=== PATIENT | male | born 1980 | race Caucasian/White ===

== ENCOUNTER 2021-08-14 06:57 | Day surgery (SDC) | payer BC ==
[~2021-08-14 06:57] MED LIST: Lactated Ringers 1,000 ML IV SCH; Lidocaine 1%/Sod Bicarbonate in NS 8.4% 1 ML Syringe IDERM PRN; Sodium Chloride 0.9% 10 ML Syringe FLUSH PRN
--- NOTE | 2021-08-14 07:36 | PCM.PREANE ---
Preanesthetic Assessment - Procedure Proposed Procedure: Colonoscopy - Anesthesia/Transfusion/Family Hx Anesthesia History: No Prior Anesthesia Family History of Anesthesia Reaction: No Transfusion History: No Prior Transfusion(s) - Review of Systems General: No Symptoms Pulmonary: No Symptoms Cardiovascular: No Symptoms, Other (Hx of Asthma, asymptomatic for the most time) Gastrointestinal: No Symptoms Neurological: No Symptoms Other: Reports: None - Physical Assessment NPO Status Date: 08/13/21 NPO Status Time: 21:30 Height: 1.83 m Weight: 151.5 kg ASA Class: 2 Mental Status: Alert & Oriented x3 Airway Class: Mallampati = 2 Dentition: Reports: Normal Dentition Thyro-Mental Finger Breadths: 3 Mouth Opening Finger Breadths: 3 ROM/Head Extension: Full Lungs: Clear to Auscultation, Normal Respiratory Effort Cardiovascular: Regular Rate, Regular Rhythm - Allergies Allergies/Adverse Reactions: Allergies Allergy/AdvReac Type Severity Reaction Status Date / Time No Known Allergies Allergy Verified 08/09/21 09:01 - Acknowledgements Anesthesia Type Planned: MAC Pt an Appropriate Candidate for the Planned Anesthesia: Yes Alternatives and Risks of Anesthesia Discussed w Pt/Guardian: Yes Pt/Guardian Understands and Agrees with Anesthesia Plan: Yes PreAnesthesia Questionnaire HEENT History: Reports: Allergic Rhinitis Cardiovascular History: Reports: None Respiratory History: Reports: Asthma, Sleep Apnea (probably undiagnosed) Gastrointestinal History: Reports: None Genitourinary History: Reports: None [employer] History: Reports: None Musculoskeletal History: Reports: Arthritis Neurological History: Reports: Other (See Below) Other Neuro History: PRABHJOT gene Psychiatric History: Reports: None Endocrine/Metabolic History: Reports: Obesity/BMI 30+ (Morbid, BMI>>45) Hematologic History: Reports: None Immunologic History: Reports: None Oncologic (Cancer) History: Reports: None Dermatologic History: Reports: None - Past Surgical History Head Surgeries/Procedures: Reports: None HEENT Surgical History: Reports: None Respiratory Surgical History: Reports: None GI Surgical History: Reports: None Female Surgical History: Reports: None Male Surgical History: Reports: None Endocrine Surgical History: Reports: None Neurological Surgical History: Reports: None Musculoskeletal Surgical History: Reports: None Oncologic Surgical History: Reports: None Dermatological Surgical History: Reports: None - SUBSTANCE USE Tobacco Use Status *Q: Never Tobacco User Days Per Week of Alcohol Use: 2 Number of Drinks Per Day: 2 Total Drinks Per Week: 4 Recreational Drug Use History: No - HOME MEDS Home Medications: Home Meds Fish Oil/Mclaughlin-3 Fatty Acids [Fish Oil 1,000 MG] 1 gm PO DAILY 08/09/21 [H istory] Glucosam/Chond/Collagen/Hyalur [Glucosamine Chondroitin] 1 cap PO DAILY 08/09/21 [History] Loratadine/Pseudoephedrine [Claritin-D 24 Hour Tablet] 1 tab PO DAILY 08/09/21 [History] Multivitamin 1 tab PO DAILY 08/09/21 [History] Vitamin E 1,000 unit PO DAILY 08/09/21 [History] - CURRENT (IN HOUSE) MEDS Current Meds: Current Medications Lactated Ringer's (Ringers, Lactated) 1,000 mls @ 125 mls/hr IV ASDIRECTED VICKIE Stop: 08/14/21 23:00 Lidocaine/Sodium Bicarbonate (Lidocaine 1%/Sod Bicarbonate In Ns 8.4% 1 Ml Syringe) 0.25 ml IDERM ONETIME PRN PRN Reason: Prior to IV Start Stop: 08/14/21 18:00 Sodium Chloride (Sodium Chloride 0.9% 10 Ml Syringe) 10 ml FLUSH ASDIRECTED PRN PRN Reason: Keep Vein Open Stop: 08/14/21 18:00 Discontinued Medications Lactated Ringer's (Ringers, Lactated) 1,000 mls @ 125 mls/hr IV ASDIRECTED VICKIE Stop: 07/31/21 23:00 Lidocaine/Sodium Bicarbonate (Lidocaine 1%/Sod Bicarbonate In Ns 8.4% 1 Ml Syringe) 0.25 ml IDERM ONETIME PRN PRN Reason: Prior to IV Start Stop: 07/31/21 23:00 Sodium Chloride (Sodium Chloride 0.9% 10 Ml Syringe) 10 ml FLUSH ASDIRECTED PRN PRN Reason: Keep Vein Open Stop: 07/31/21 23:00
[2021-08-14] MEDS ORDERED: Propofol 200 MG/20 ML SDV ONE (07:49)
[2021-08-14] MEDS ORDERED: Lidocaine 1% 6 ML ONE (07:49)
[2021-08-14] MEDS ORDERED: Ketamine 500 mg/10 ML MDV ONE (07:50)
[2021-08-14] MEDS ORDERED: fentaNYL 100 MCG/2 ML SDV ONE (07:57)
--- NOTE | 2021-08-14 08:53 | PCM48HPAN ---
Post Anesthesia Note - EVALUATION WITHIN 48HRS OF ANESTHETIC Vital Signs in Normal Range: Yes Patient Participated in Evaluation: Yes Respiratory Function Stable: Yes Airway Patent: Yes Cardiovascular Function Stable: Yes Hydration Status Stable: Yes Pain Control Satisfactory: Yes Nausea and Vomiting Control Satisfactory: Yes Mental Status Recovered: Yes Vital Signs: Last Vital Signs Temp 98.2 F 08/14/21 08:40 Pulse 105 H 08/14/21 08:40 Resp 16 08/14/21 08:40 BP 156/85 H 08/14/21 08:40 Pulse Ox 91 L 08/14/21 08:40
--- NOTE | 2021-08-14 09:11 | PROC ---
DATE OF OPERATION: 08/14/2021 SURGEON: Gomez Guerrier MD PREOPERATIVE DIAGNOSIS: Screening colon cancer for high risk patient. POSTOPERATIVE DIAGNOSIS: Normal colon. OPERATION PERFORMED: Colonoscopy. ANESTHESIA: Monitored anesthesia care. ESTIMATED BLOOD LOSS: None. COMPLICATIONS: None. INDICATIONS AND CONSENT: The patient is 40. He has a family history of colon cancer and other hereditary diseases. 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 His maternal grandfather had colon cancer at age 42. Therefore, patient was advised to undergo early screening colon cancer. He came to see me in clinic and he was deemed to be a good candidate for a screening colonoscopy. Risks, benefits, and alternatives were discussed with the patient and informed consent was obtained. DESCRIPTION OF PROCEDURE: The patient was taken to the procedure room, placed in left lateral decubitus position. A time-out was performed and monitored anesthesia care was induced. Once this was done, we began the exam with perianal and digital rectal exams, which were both normal. Then, a scope was placed and taken all the way to the cecum. The appendiceal orifice and the ileocecal valve were photographed. The cecum was examined and was normal. The prep was good to excellent in this patient. We examined the entirety of the colon and it was normal. There were no polyps or any other abnormalities. On retroflexion, the rectum was normal as well. The air was suctioned out and procedure was concluded. The patient was awakened and taken to the recovery area. The patient to be allowed to return home today and recommendation for followup given his family history and hereditary condition will be 5 years. MMODAL /[id number] WILIAN
== END 2021-08-14 09:30 | disposition home or self-care (01) ==
LOC: JD.SDS 06:57
PROVIDERS: ATTEND Surgery
DX: Z12.11 Encounter for screening for malignant neoplasm of colon (principal); E66.01 Morbid (severe) obesity due to excess calories; J45.909 Unspecified asthma, uncomplicated; Z68.42 Body mass index [BMI] 45.0-49.9, adult; Z80.0 Family history of malignant neoplasm of digestive organs; Z79.899 Other long term (current) drug therapy
CPT/HCPCS: J2704; J3010; J7120